=== PATIENT | female | born 1960 | race Caucasian/White ===

== ENCOUNTER 2020-11-19 15:25 | Inpatient (IN) | payer MEDICARE, MEDICAID ==
[~2020-11-19] VITALS: Ht 160 cm; Wt 123.8 kg
[2020-11-19 15:54] LABS: BASOPHILS % (AUTO) 0.6 % (0-1); EOSINOPHILS # (AUTO) 0.1 X10'3 (0-0.9); HEMATOCRIT 43.1 % (35.0-45.0); HEMOGLOBIN 13.7 g/dl (12.0-16.0); LYMPHOCYTES # (AUTO) 0.5 X10'3 (1.1-4.8); LYMPHOCYTES % (AUTO) 6.5 % (21-51); MEAN CORPUSCULAR HGB CONC 31.9 g/dL (33.0-36.5); MEAN CORPUSCULAR VOLUME 84.8 FL (78-98); MEAN PLATELET VOLUME 7.6 FL (7.4-10.4); MONOCYTES # (AUTO) 0.7 X10'3 (0-0.9); NEUTROPHILS % (AUTO) 83.9 % (42-75); PLATELET COUNT 262 X10'3 (140-440); RED BLOOD COUNT 5.08 X10'6 (4.20-5.60); RED CELL DISTRIBUTION WIDTH 16.2 % (11.5-14.5); WHITE BLOOD COUNT 8.4 X10'3 (4.5-11.0)
--- NOTE | 2020-11-19 15:55 | NUR ---
PT TO ROOM 8, TALKING 5-6 WORD SENTENCES, ON NASAL CANNULA 3 LITERS,
--- NOTE | 2020-11-19 16:01 | NUR ---
PER PT SINGER WAS PLACED ON WEDNESDAY IN [place]
[2020-11-19 16:11] LABS: ALANINE AMINOTRANSFERASE 12 U/L (12-78); ALBUMIN 3.6 G/DL (3.4-5.0); ALBUMIN/GLOBULIN RATIO 0.9 (1.1-1.5); ALKALINE PHOSPHATASE 100 IU/L (46-116); ANION GAP 6 (8-16); ASPARTATE AMINO TRANSFERASE 11 U/L (10-37); BILIRUBIN,TOTAL 0.6 MG/DL (0.1-1.0); BLOOD UREA NITROGEN 27 MG/DL (7-18); CALCIUM 8.7 MG/DL (8.5-10.1); CHLORIDE 105 MMOL/L (99-107); CREATININE 1.04 MG/DL (0.40-0.90); GLUCOSE 123 MG/DL (70-104); POTASSIUM 4.2 MMOL/L (3.5-5.1); SODIUM 143 MMOL/L (135-145); TOTAL PROTEIN 7.6 G/DL (6.4-8.2); eGFR 54 ML/MIN
[2020-11-19] MEDS ORDERED: furosemide 10 MG/1 ML 10ml inj IV ONE (16:25)
--- NOTE | 2020-11-19 17:23 | NUR ---
EMPTIED SINGER OF 450ML OF DARK YELLOW URINE, PT IS RESTING QUIETLY ON BOBY, AT BEDSIDE
[2020-11-19] MEDS ORDERED: albuterol 2.5 MG/3 ML nebule NEB ONE (18:10)
[2020-11-19] MEDS ORDERED: ipratropium/albuterol 3ml nebule NEB ONE (18:10)
[2020-11-19] MEDS ORDERED: methylPREDNISolone sod succ 125mg/2ml vial IV ONE (18:10)
[2020-11-19] MEDS ORDERED: dextrose ORAL solution 15 GM/59 ML bottle PO PRN ×2 (21:00)
[2020-11-19] MEDS ORDERED: potassium Cl 40MEQ/1/2NS 520ml 520 ML IV PRN ×2 (21:00)
[2020-11-19] MEDS ORDERED: acetaminophen 325mg tablet PO PRN ×2 (21:00)
[2020-11-19] MEDS ORDERED: magnesium hydroxide 30ml (MOM) UD suspension PO PRN (21:00)
[2020-11-19] MEDS ORDERED: magnesium Cl slow-release 64mg tablet PO PRN (21:00)
[2020-11-19] MEDS ORDERED: ondansetron/PF 4mg/2ml inj IV PRN (21:00)
[2020-11-19] MEDS ORDERED: glucagon, human recombinant 1mg kit SUBCUT PRN (21:00)
[2020-11-19] MEDS ORDERED: magnesium 4gm in 100ml NS 100 ML IV PRN (21:00)
[2020-11-19] MEDS ORDERED: magnesium 2GM in 50ml NS 50 ML IV PRN (21:00)
[2020-11-19] MEDS ORDERED: MESSAGE TO PHARMACY PO ONE (21:00)
[2020-11-19] MEDS ORDERED: potassium Cl 20 mEq SR tablet PO PRN ×2 (21:00)
[2020-11-19] MEDS ORDERED: mag hydrox/Alum hydrox/simeth 30ml oral suspension PO PRN (21:00)
[2020-11-19] MEDS ORDERED: morphine 2 MG/ML inj. syringe IV PRN (21:00)
[2020-11-19] MEDS ORDERED: temazepam 15mg capsule PO PRN (21:00)
[2020-11-19] MEDS ORDERED: albuterol 2.5 MG/3 ML nebule NEB PRN (21:00)
[2020-11-19] MEDS ORDERED: dextrose 50%-water 50ml dispensing syringe IV PRN ×2 (21:00)
[2020-11-19] MEDS: normal saline 1000ml 1,000 ML IV SCH (21:10)
[2020-11-19] MEDS ORDERED: OMEP40CA21 PO (21:15)
[2020-11-19] MEDS ORDERED: LISI-643 PO (21:15)
[2020-11-19] MEDS ORDERED: FURO40TA4 PO (21:15)
[2020-11-19] MEDS ORDERED: CETI-90 PO (21:15)
[2020-11-19] MEDS ORDERED: NICO-630 TOP (21:17)
[2020-11-19] MEDS ORDERED: ATOR10TA87 PO (21:17)
[2020-11-19] MEDS ORDERED: DILT240C33 PO (21:17)
[2020-11-19] MEDS ORDERED: METF-880 PO (21:17)
[2020-11-19] MEDS ORDERED: ALBU18HF2 INH (21:19)
[2020-11-19 21:52] LABS: HEMOGLOBIN A1C 6.6 % (4.5-6.2)
[2020-11-19] MEDS: insulin glargine (Lantus) pen - multi-dose SQ SCH (22:05)
--- NOTE | 2020-11-19 23:40 | NUR ---
Patient woke up in a panic stating she needed assitance getting up. Helped to a seated position on the side of the bed. She says her lips feel numb and her tongue feels like its burning. It has been feeling like that for past 2 days. Was provided with ice chips for comfort. No further needs at this time.
--- NOTE | 2020-11-20 02:26 | NUR ---
PT AWOKE AND CALLED OUT FOR NURSE AND FOR WATER. STATES SHE WAS ASLEEP AND SHE WOKE IN A PANIC AND COULDN'T BREATH AND HER MOUTH AND THROAT WAS SO DRY. GIVEN ICE CHIPS AND WATER AND POPCICLE. STATES THIS HAS BEEN HAPPENING LATELY TO HER. STATES ALSO SHE HAS THE SENSATION OF BURNING IN HER MOUTH AND TOUNGE THE PAST FEW DAYS.
[2020-11-20 03:39] LABS: BASOPHILS % (AUTO) 0.2 % (0-1); EOSINOPHILS % (AUTO) 0 % (0-6); HEMATOCRIT 43.7 % (35.0-45.0); HEMOGLOBIN 13.6 g/dl (12.0-16.0); LYMPHOCYTES # (AUTO) 0.1 X10'3 (1.1-4.8); LYMPHOCYTES % (AUTO) 1.9 % (21-51); MEAN CORPUSCULAR HEMOGLOBIN 26.6 PG (27.0-31.0); MEAN CORPUSCULAR HGB CONC 31.1 g/dL (33.0-36.5); MEAN CORPUSCULAR VOLUME 85.6 FL (78-98); MEAN PLATELET VOLUME 8.2 FL (7.4-10.4); MONOCYTES % (AUTO) 0.5 % (2-12); NEUTROPHILS # (AUTO) 7.4 X10'3 (1.8-7.7); NEUTROPHILS % (AUTO) 97.4 % (42-75); PLATELET COUNT 244 X10'3 (140-440); RED CELL DISTRIBUTION WIDTH 16.9 % (11.5-14.5); WHITE BLOOD COUNT 7.6 X10'3 (4.5-11.0)
[2020-11-20 04:47] LABS: ALANINE AMINOTRANSFERASE 17 U/L (12-78); ALBUMIN 3.6 G/DL (3.4-5.0); ALBUMIN/GLOBULIN RATIO 0.9 (1.1-1.5); ALKALINE PHOSPHATASE 90 IU/L (46-116); ANION GAP 8 (8-16); ASPARTATE AMINO TRANSFERASE 10 U/L (10-37); BILIRUBIN,TOTAL 0.5 MG/DL (0.1-1.0); BLOOD UREA NITROGEN 27 MG/DL (7-18); BUN/CREATININE RATIO 20.9 (6.6-38.0); CALCIUM 8.6 MG/DL (8.5-10.1); CHLORIDE 103 MMOL/L (99-107); CHOLESTEROL 104 MG/DL (0-200); CREATININE 1.29 MG/DL (0.40-0.90); GLUCOSE 278 MG/DL (70-104); HDL CHOLESTEROL 52 MG/DL (35-60); LDL CHOLESTEROL 47 MG/DL (50-100); MAGNESIUM 2.2 MG/DL (1.5-2.4); POTASSIUM 4.6 MMOL/L (3.5-5.1); SODIUM 142 MMOL/L (135-145); TOTAL CARBON DIOXIDE 31.1 MMOL/L (24-32); TOTAL PROTEIN 7.8 G/DL (6.4-8.2); TRIGLYCERIDES 41 MG/DL (20-135); eGFR 42 ML/MIN
[2020-11-20 05:01] LABS: TROPONIN I < 0.04 NG/ML (0.0-0.05)
[2020-11-20 06:00] VITALS: BP 141/78
[2020-11-20] MEDS: K and/or MAG REPLACEMENT MC SCH ×2 (08:00→20:00)
[2020-11-20] MEDS: atorvastatin 10mg tablet PO SCH (08:54)
[2020-11-20] MEDS: pantoprazole 40mg Tablet.DR PO SCH (08:54)
[2020-11-20] MEDS: diltiazem CD 120mg capsule (once-daily) PO SCH (08:54)
[2020-11-20] MEDS: furosemide 40mg/4ml inj IV SCH ×2 (08:56→20:45)
[2020-11-20] MEDS: heparin, porcine 5000 units/ml vial SQ SCH ×2 (08:56→20:00)
[2020-11-20] MEDS ORDERED: CETI10TA18 PO (10:12)
[2020-11-20] MEDS ORDERED: SPIR50TA5 PO (10:12)
[2020-11-20 11:00] VITALS: BP 154/88
[2020-11-20] MEDS: HYDROcodone/acetaminophen 5mg/325mg tablet PO PRN ×2 (11:50→20:45)
--- NOTE | 2020-11-20 13:15 | NUR ---
PAGER ID: [phone] MESSAGE: Re: Fanta Subramanian Rm 24B. She's requesting a nicotine patch. Smokes bout 3 cigars/wk.
[2020-11-20] MEDS: insulin Lispro (HumaLOG) vial - multi-dose SQ SCH (13:53)
[2020-11-20 15:00] VITALS: BP 134/53
--- NOTE | 2020-11-20 18:21 | NUR ---
Problems reprioritized. Patient report given, questions answered & plan of care reviewed with shift supervisor melting RN.
--- NOTE | 2020-11-20 19:25 | NUR ---
Patient in room PCU 3024. I have received report from Wilian GALVAN and had the opportunity to ask questions and assume patient care.
--- NOTE | 2020-11-20 19:43 | NUR ---
Problems reprioritized. Patient report given, questions answered & plan of care reviewed with Kristine GALVAN.
[2020-11-20] MEDS: insulin glargine (Lantus) pen - multi-dose SQ SCH (21:00)
--- NOTE | 2020-11-20 22:14 | NUR ---
[employer] PAGER ID: [phone] MESSAGE: [id number] just called, positive blood culture aerobic bottle drawn on 11/19 @2201 IV DRAW GRAM + RODS Kristine GALVAN
[2020-11-20] MEDS: nicotine 21mg patch - 24 hr TD SCH (23:34)
[2020-11-20] MEDS: CefTRIAXone/D5W-Rocephin 1gm 50 ML IV SCH (23:45)
[2020-11-21] MEDS: HYDROcodone/acetaminophen 5mg/325mg tablet PO PRN ×4 (01:28→19:31)
[2020-11-21 06:00] VITALS: BP 147/82
[2020-11-21 06:04] LABS: BASOPHILS % (AUTO) 0.1 % (0-1); EOSINOPHILS % (AUTO) 0.1 % (0-6); HEMATOCRIT 42.8 % (35.0-45.0); HEMOGLOBIN 13.6 g/dl (12.0-16.0); LYMPHOCYTES # (AUTO) 0.5 X10'3 (1.1-4.8); MEAN CORPUSCULAR HEMOGLOBIN 26.9 PG (27.0-31.0); MEAN CORPUSCULAR HGB CONC 31.9 g/dL (33.0-36.5); MEAN CORPUSCULAR VOLUME 84.4 FL (78-98); MEAN PLATELET VOLUME 7.9 FL (7.4-10.4); MONOCYTES # (AUTO) 0.8 X10'3 (0-0.9); MONOCYTES % (AUTO) 7.1 % (2-12); NEUTROPHILS # (AUTO) 9.4 X10'3 (1.8-7.7); NEUTROPHILS % (AUTO) 87.7 % (42-75); PLATELET COUNT 259 X10'3 (140-440); RED BLOOD COUNT 5.07 X10'6 (4.20-5.60); RED CELL DISTRIBUTION WIDTH 16.1 % (11.5-14.5); WHITE BLOOD COUNT 10.7 X10'3 (4.5-11.0)
[2020-11-21 06:13] LABS: ALANINE AMINOTRANSFERASE 19 U/L (12-78); ALBUMIN 3.6 G/DL (3.4-5.0); ALBUMIN/GLOBULIN RATIO 0.9 (1.1-1.5); ALKALINE PHOSPHATASE 84 IU/L (46-116); ANION GAP 6 (8-16); ASPARTATE AMINO TRANSFERASE 13 U/L (10-37); BILIRUBIN,TOTAL 0.4 MG/DL (0.1-1.0); BLOOD UREA NITROGEN 34 MG/DL (7-18); BUN/CREATININE RATIO 32.1 (6.6-38.0); CALCIUM 9.1 MG/DL (8.5-10.1); CHLORIDE 103 MMOL/L (99-107); CREATININE 1.06 MG/DL (0.40-0.90); GLUCOSE 130 MG/DL (70-104); MAGNESIUM 2.5 MG/DL (1.5-2.4); POTASSIUM 4.8 MMOL/L (3.5-5.1); SODIUM 140 MMOL/L (135-145); TOTAL CARBON DIOXIDE 31.2 MMOL/L (24-32); TOTAL PROTEIN 7.7 G/DL (6.4-8.2); eGFR 53 ML/MIN
--- NOTE | 2020-11-21 06:31 | NUR ---
Patient in room PCU 3024. I have received report from [place] and had the opportunity to ask questions and assume patient care.
--- NOTE | 2020-11-21 06:56 | NUR ---
Problems reprioritized. Patient report given, questions answered & plan of care reviewed with Wilian GALVAN.
[2020-11-21] MEDS: K and/or MAG REPLACEMENT MC SCH ×2 (08:00→20:00)
[2020-11-21] MEDS: insulin Lispro (HumaLOG) vial - multi-dose SQ SCH ×3 (08:56→21:03)
[2020-11-21] MEDS: furosemide 40mg/4ml inj IV SCH ×2 (08:58→19:14)
[2020-11-21] MEDS: pantoprazole 40mg Tablet.DR PO SCH (09:00)
[2020-11-21] MEDS: heparin, porcine 5000 units/ml vial SQ SCH (09:00)
[2020-11-21] MEDS: diltiazem CD 120mg capsule (once-daily) PO SCH (09:01)
[2020-11-21] MEDS: nicotine 21mg patch - 24 hr TD SCH (09:01)
[2020-11-21] MEDS: atorvastatin 10mg tablet PO SCH (09:02)
[2020-11-21 11:00] VITALS: BP 121/72
[2020-11-21] MEDS: chlorhexidine gluconate 15ml Cup****oral rinse MM SCH ×2 (13:32→19:17)
[2020-11-21 15:00] VITALS: BP 122/68
--- NOTE | 2020-11-21 17:22 | NUR ---
Pt requested cranberry juice. Encouraged and educated patient to monitor fluid intake. Pt verbalized understanding and will try to limit her intake to 8 cups/day.
[2020-11-21 18:00] VITALS: BP 133/81
--- NOTE | 2020-11-21 18:00 | NUR ---
Patient in room PCU 3024. I have received report from DIAMOND GALVAN and had the opportunity to ask questions and assume patient care.
--- NOTE | 2020-11-21 18:23 | NUR ---
Problems reprioritized. Patient report given, questions answered & plan of care reviewed with
[2020-11-21] MEDS: predniSONE 20 mg tablet PO SCH (19:10)
[2020-11-21] MEDS: lactobacillus rhamnosus 10,000 MMU CELLS/CAPSULE PO SCH (19:18)
--- NOTE | 2020-11-21 19:35 | NUR ---
PATIENT REFUSED INSULIN, HEPARIN, ROCEPHIN DESPITE EDUCATION. INITIALLY REFUSED PREDNISONE, THEN ACCEPTED ADMINISTRATION WITH EDUCATION. MD AWARE. BOBBY GALVAN
[2020-11-21] MEDS: insulin glargine (Lantus) pen - multi-dose SQ SCH (21:00)
[2020-11-21] MEDS: normal saline 1000ml 1,000 ML IV SCH (21:00)
[2020-11-21 22:00] VITALS: BP 132/71
[2020-11-21] MEDS: CefTRIAXone/D5W-Rocephin 1gm 50 ML IV SCH (23:00)
[2020-11-22 02:00] VITALS: BP 137/85
[2020-11-22] MEDS: HYDROcodone/acetaminophen 5mg/325mg tablet PO PRN ×3 (03:18→19:58)
[2020-11-22 06:00] VITALS: BP 138/90
--- NOTE | 2020-11-22 06:03 | NUR ---
Problems reprioritized. Patient report given, questions answered & plan of care reviewed with DELMY GALVAN.
[2020-11-22] MEDS: pantoprazole 40mg Tablet.DR PO SCH (07:49)
[2020-11-22] MEDS: lactobacillus rhamnosus 10,000 MMU CELLS/CAPSULE PO SCH ×2 (07:49→19:58)
[2020-11-22] MEDS: predniSONE 20 mg tablet PO SCH (07:50)
[2020-11-22] MEDS: atorvastatin 10mg tablet PO SCH (07:50)
[2020-11-22] MEDS: diltiazem CD 120mg capsule (once-daily) PO SCH (07:51)
[2020-11-22 07:54] LABS: BASOPHILS % (AUTO) 0.1 % (0-1); EOSINOPHILS % (AUTO) 0 % (0-6); HEMATOCRIT 44.6 % (35.0-45.0); HEMOGLOBIN 13.9 g/dl (12.0-16.0); LYMPHOCYTES # (AUTO) 0.3 X10'3 (1.1-4.8); LYMPHOCYTES % (AUTO) 3.9 % (21-51); MEAN CORPUSCULAR HEMOGLOBIN 26.5 PG (27.0-31.0); MEAN CORPUSCULAR HGB CONC 31.1 g/dL (33.0-36.5); MEAN CORPUSCULAR VOLUME 85.2 FL (78-98); MEAN PLATELET VOLUME 7.9 FL (7.4-10.4); MONOCYTES # (AUTO) 0.1 X10'3 (0-0.9); MONOCYTES % (AUTO) 1.9 % (2-12); NEUTROPHILS # (AUTO) 7.1 X10'3 (1.8-7.7); NEUTROPHILS % (AUTO) 94.1 % (42-75); PLATELET COUNT 265 X10'3 (140-440); RED BLOOD COUNT 5.24 X10'6 (4.20-5.60); RED CELL DISTRIBUTION WIDTH 16.2 % (11.5-14.5); WHITE BLOOD COUNT 7.6 X10'3 (4.5-11.0)
[2020-11-22] MEDS: chlorhexidine gluconate 15ml Cup****oral rinse MM SCH ×2 (07:54→19:55)
[2020-11-22] MEDS: furosemide 40mg/4ml inj IV SCH ×2 (07:54→19:56)
[2020-11-22] MEDS: CefTRIAXone/D5W-Rocephin 1gm 50 ML IV SCH (08:00)
[2020-11-22] MEDS: K and/or MAG REPLACEMENT MC SCH ×2 (08:00→20:07)
[2020-11-22] MEDS: nicotine 21mg patch - 24 hr TD SCH ×2 (08:00→14:39)
[2020-11-22] MEDS: heparin, porcine 5000 units/ml vial SQ SCH ×3 (08:00→20:00)
--- NOTE | 2020-11-22 08:01 | NUR ---
Patient refused the following meds: rocephin, heparin, nicotine patch - education provided re: importance of medications, pt verbalized understanding.
[2020-11-22 08:21] LABS: ALANINE AMINOTRANSFERASE 20 U/L (12-78); ALBUMIN 3.5 G/DL (3.4-5.0); ALBUMIN/GLOBULIN RATIO 0.9 (1.1-1.5); ALKALINE PHOSPHATASE 91 IU/L (46-116); ANION GAP 7 (8-16); ASPARTATE AMINO TRANSFERASE 13 U/L (10-37); BILIRUBIN,TOTAL 0.5 MG/DL (0.1-1.0); BLOOD UREA NITROGEN 41 MG/DL (7-18); BUN/CREATININE RATIO 35.3 (6.6-38.0); CHLORIDE 101 MMOL/L (99-107); CREATININE 1.16 MG/DL (0.40-0.90); GLUCOSE 155 MG/DL (70-104); MAGNESIUM 2.2 MG/DL (1.5-2.4); SODIUM 141 MMOL/L (135-145); TOTAL PROTEIN 7.4 G/DL (6.4-8.2); eGFR 48 ML/MIN
[2020-11-22 11:00] VITALS: BP 115/66
--- NOTE | 2020-11-22 12:17 | NUR ---
Pt refused: humalog insulin after breakfast per protocol & 1100 blood sugar check
[2020-11-22 15:00] VITALS: BP 129/77
[2020-11-22 18:00] VITALS: BP 129/81
--- NOTE | 2020-11-22 18:30 | NUR ---
Patient in room U 3024. I have received report from DELMY GALVAN and had the opportunity to ask questions and assume patient care. Addendum: 11/22/20 at 1917 by Krysta Jay RN Amended: Links added.
--- NOTE | 2020-11-22 18:44 | NUR ---
Problems reprioritized. Patient report given, questions answered & plan of care reviewed with COLE Chaparro.
[2020-11-22] MEDS: insulin Lispro (HumaLOG) vial - multi-dose SQ SCH (20:17)
--- NOTE | 2020-11-22 20:30 | NUR ---
SINGER CATHETER Patient refused the removal of the Singer catheter, stating "I have it in for my Lasix". Patient also refused the recommendation of walking to the bathroom or having a bedside commode, also stating stating "I cant go too far without my oxygen and I go too much." MD Soto has addressed in the H&P that the Singer was placed for the Lasix and will be continuing on Lasix. Will pass information to night RN to follow up with to get order for Singer.
[2020-11-22] MEDS: insulin glargine (Lantus) pen - multi-dose SQ SCH (21:00)
--- NOTE | 2020-11-22 22:00 | NUR ---
pt refused lantus dose. blood sugar 122. had taken humalog earlier. also refused heparin dose earlier. Stated she walked enough. noted she had not walked much or very far in the room. no more than 2 feet.
[2020-11-22 23:00] VITALS: BP 138/66
--- NOTE | 2020-11-23 00:56 | NUR ---
PT STATED SHE WAS HUNGRY WANTED A YOGURT. had dietary teaching done with her.
[2020-11-23] MEDS: HYDROcodone/acetaminophen 5mg/325mg tablet PO PRN ×4 (01:27→19:49)
--- NOTE | 2020-11-23 01:29 | NUR ---
complaint of pain back legs and mouth. medicated with po norco.
--- NOTE | 2020-11-23 05:54 | NUR ---
Dr Soto called to see if see wanted the marcum to remain. received orders to discontinue it.
--- NOTE | 2020-11-23 05:55 | NUR ---
pt not happy but jossue grijalva'd after deflating the balloon and to semi appease her wicc applied and teaching regarding it done.
[2020-11-23 06:00] VITALS: BP 105/76
--- NOTE | 2020-11-23 06:24 | NUR ---
Problems reprioritized. Patient report given, questions answered & plan of care reviewed with Cam Trinidad. Addendum: 11/23/20 at 0627 by Krysta Jay RN Amended: Links added.
[2020-11-23 06:53] LABS: BASOPHILS % (AUTO) 0.3 % (0-1); EOSINOPHILS % (AUTO) 0.3 % (0-6); HEMATOCRIT 45.7 % (35.0-45.0); HEMOGLOBIN 14.4 g/dl (12.0-16.0); LYMPHOCYTES # (AUTO) 0.9 X10'3 (1.1-4.8); LYMPHOCYTES % (AUTO) 10.1 % (21-51); MEAN CORPUSCULAR HEMOGLOBIN 26.8 PG (27.0-31.0); MEAN CORPUSCULAR HGB CONC 31.6 g/dL (33.0-36.5); MEAN CORPUSCULAR VOLUME 84.8 FL (78-98); MONOCYTES # (AUTO) 0.8 X10'3 (0-0.9); MONOCYTES % (AUTO) 8.5 % (2-12); NEUTROPHILS # (AUTO) 7.2 X10'3 (1.8-7.7); NEUTROPHILS % (AUTO) 80.8 % (42-75); PLATELET COUNT 289 X10'3 (140-440); RED BLOOD COUNT 5.39 X10'6 (4.20-5.60)
[2020-11-23 07:16] LABS: ALANINE AMINOTRANSFERASE 24 U/L (12-78); ALBUMIN 3.6 G/DL (3.4-5.0); ALBUMIN/GLOBULIN RATIO 0.9 (1.1-1.5); ALKALINE PHOSPHATASE 94 IU/L (46-116); ANION GAP 6 (8-16); ASPARTATE AMINO TRANSFERASE 14 U/L (10-37); BILIRUBIN,TOTAL 0.6 MG/DL (0.1-1.0); BLOOD UREA NITROGEN 41 MG/DL (7-18); BUN/CREATININE RATIO 34.5 (6.6-38.0); CALCIUM 9.3 MG/DL (8.5-10.1); CHLORIDE 100 MMOL/L (99-107); CREATININE 1.19 MG/DL (0.40-0.90); GLUCOSE 90 MG/DL (70-104); MAGNESIUM 2.2 MG/DL (1.5-2.4); POTASSIUM 4.1 MMOL/L (3.5-5.1); SODIUM 144 MMOL/L (135-145); TOTAL CARBON DIOXIDE 37.8 MMOL/L (24-32); TOTAL PROTEIN 7.4 G/DL (6.4-8.2); eGFR 46 ML/MIN
[2020-11-23] MEDS: heparin, porcine 5000 units/ml vial SQ SCH ×2 (08:00→20:00)
[2020-11-23] MEDS: chlorhexidine gluconate 15ml Cup****oral rinse MM SCH ×2 (08:01→20:10)
[2020-11-23] MEDS: furosemide 40mg/4ml inj IV SCH ×2 (08:08→19:52)
[2020-11-23] MEDS: pantoprazole 40mg Tablet.DR PO SCH (08:08)
[2020-11-23] MEDS: atorvastatin 10mg tablet PO SCH (08:08)
[2020-11-23] MEDS: diltiazem CD 120mg capsule (once-daily) PO SCH (08:10)
[2020-11-23] MEDS: predniSONE 20 mg tablet PO SCH (08:10)
[2020-11-23] MEDS: lactobacillus rhamnosus 10,000 MMU CELLS/CAPSULE PO SCH ×2 (08:10→19:56)
--- NOTE | 2020-11-23 08:24 | NUR ---
Pt refused heparin, edu given. she demonstrated clear understanding of med purpose and still refuses. pt also refused bg check this AM , she had taken it on her home meter already - "110", edu given, pt agreed to use her lancet and our meter from here on out. refusing am vianca
[2020-11-23] MEDS ORDERED: albuterol 2.5 MG/3 ML nebule NEB PRN (09:40)
[2020-11-23] MEDS ORDERED: ipratropium/albuterol 3ml nebule NEB PRN (09:40)
--- NOTE | 2020-11-23 10:43 | NUR ---
Rounded with MD Adair and reviewed pt problems, orders received. pt has strong c/o abd distention and not being able to clean herself after toileting d/t new distension, also mouth soreness persists.
[2020-11-23 11:00] VITALS: BP 148/70
--- NOTE | 2020-11-23 12:00 | NUR ---
pt refusing BG cjhecks again and using her own equipment. her noon bg is 127 .
[2020-11-23] MEDS: nicotine 21mg patch - 24 hr TD SCH (15:45)
--- NOTE | 2020-11-23 15:47 | NUR ---
removed old nicotine patch
[2020-11-23] MEDS ORDERED: mag & alum hydrox/simeth susp 40 ML, diphenhydrAMINE oral solution 100 MG, LIDOcaine Vi... PO PRN ×3 (16:50)
--- NOTE | 2020-11-23 17:00 | NUR ---
Pt BG is 164 per her meter. she refused coverage but is open to "checking it again later and letting us know " if she wants it covered
[2020-11-23 18:00] VITALS: BP 141/78
--- NOTE | 2020-11-23 18:00 | NUR ---
Patient in room U 3024. I have received report from Cam GALVAN and had the opportunity to ask questions and assume patient care. Addendum: 11/23/20 at 1914 by Marisela Velarde RN Amended: Links added.
--- NOTE | 2020-11-23 18:31 | NUR ---
Problems reprioritized. Patient report given, questions answered & plan of care reviewed with Marisela GALVAN.
[2020-11-23] MEDS: K and/or MAG REPLACEMENT MC SCH (20:00)
[2020-11-23] MEDS: normal saline 1000ml 1,000 ML IV SCH (21:00)
[2020-11-23] MEDS: insulin glargine (Lantus) pen - multi-dose SQ SCH (21:00)
--- NOTE | 2020-11-23 21:00 | NUR ---
Pt. awake sitting on the edge of the bed watching TV with c/o SOB but wearing o2 and sating adequately. Pt. is cooperative at this time but refusing most of the care needed. Pt. refused most of the evening medication. Pt. insists on taking own and managing own blood sugars. Educated pt. on the importance of taking prescribed medication but the pt. declined. Call light within reach. Addendum: 11/24/20 at 1040 by Marisela Velarde RN Amended: Links added.
[2020-11-23 22:00] VITALS: BP 136/63
[2020-11-24] MEDS: HYDROcodone/acetaminophen 5mg/325mg tablet PO PRN ×3 (01:00→19:48)
[2020-11-24 03:15] VITALS: BP 135/87
--- NOTE | 2020-11-24 06:00 | NUR ---
Problems reprioritized. Patient report given, questions answered & plan of care reviewed with Aliya GALVAN. Addendum: 11/24/20 at 0712 by Marisela Velarde RN Amended: Links added.
--- NOTE | 2020-11-24 06:19 | NUR ---
Patient in room PCU 3024. I have received report from Marisela GALVAN and had the opportunity to ask questions and assume patient care.
[2020-11-24 06:52] LABS: ALANINE AMINOTRANSFERASE 32 U/L (12-78); ALBUMIN 3.5 G/DL (3.4-5.0); ALBUMIN/GLOBULIN RATIO 0.9 (1.1-1.5); ALKALINE PHOSPHATASE 82 IU/L (46-116); ANION GAP 5 (8-16); ASPARTATE AMINO TRANSFERASE 19 U/L (10-37); BILIRUBIN,TOTAL 0.6 MG/DL (0.1-1.0); BLOOD UREA NITROGEN 39 MG/DL (7-18); BUN/CREATININE RATIO 39.8 (6.6-38.0); CALCIUM 8.8 MG/DL (8.5-10.1); CHLORIDE 99 MMOL/L (99-107); CREATININE 0.98 MG/DL (0.40-0.90); GLUCOSE 102 MG/DL (70-104); MAGNESIUM 2.5 MG/DL (1.5-2.4); POTASSIUM 3.9 MMOL/L (3.5-5.1); SODIUM 144 MMOL/L (135-145); TOTAL CARBON DIOXIDE 39.8 MMOL/L (24-32); TOTAL PROTEIN 7.3 G/DL (6.4-8.2); eGFR 58 ML/MIN
[2020-11-24 06:53] LABS: BASOPHILS % (AUTO) 0.4 % (0-1); EOSINOPHILS % (AUTO) 0.4 % (0-6); HEMATOCRIT 44.1 % (35.0-45.0); HEMOGLOBIN 14.1 g/dl (12.0-16.0); LYMPHOCYTES # (AUTO) 0.7 X10'3 (1.1-4.8); LYMPHOCYTES % (AUTO) 8.2 % (21-51); MEAN CORPUSCULAR HEMOGLOBIN 26.9 PG (27.0-31.0); MEAN CORPUSCULAR HGB CONC 31.9 g/dL (33.0-36.5); MEAN CORPUSCULAR VOLUME 84.3 FL (78-98); MEAN PLATELET VOLUME 7.9 FL (7.4-10.4); MONOCYTES # (AUTO) 0.7 X10'3 (0-0.9); MONOCYTES % (AUTO) 8.3 % (2-12); NEUTROPHILS # (AUTO) 7.3 X10'3 (1.8-7.7); NEUTROPHILS % (AUTO) 82.7 % (42-75); PLATELET COUNT 275 X10'3 (140-440); RED BLOOD COUNT 5.23 X10'6 (4.20-5.60); RED CELL DISTRIBUTION WIDTH 16.1 % (11.5-14.5); WHITE BLOOD COUNT 8.9 X10'3 (4.5-11.0)
[2020-11-24 07:00] VITALS: BP 129/86
[2020-11-24] MEDS: K and/or MAG REPLACEMENT MC SCH ×2 (08:00→20:00)
[2020-11-24] MEDS: heparin, porcine 5000 units/ml vial SQ SCH (08:00)
[2020-11-24] MEDS: chlorhexidine gluconate 15ml Cup****oral rinse MM SCH ×2 (09:22→21:58)
[2020-11-24] MEDS: nicotine 21mg patch - 24 hr TD SCH (09:22)
[2020-11-24] MEDS: furosemide 40mg/4ml inj IV SCH ×2 (09:23→21:58)
[2020-11-24] MEDS: diltiazem CD 120mg capsule (once-daily) PO SCH (09:24)
[2020-11-24] MEDS: atorvastatin 10mg tablet PO SCH (09:24)
[2020-11-24] MEDS: pantoprazole 40mg Tablet.DR PO SCH (09:24)
[2020-11-24] MEDS: lactobacillus rhamnosus 10,000 MMU CELLS/CAPSULE PO SCH ×2 (09:24→21:58)
[2020-11-24] MEDS: predniSONE 20 mg tablet PO SCH (09:25)
[2020-11-24] MEDS ORDERED: PRED20TA PO (10:22)
[2020-11-24] MEDS ORDERED: DOXY-243 PO (10:22)
[2020-11-24] MEDS ORDERED: APIX5TAB3 PO (10:22)
--- NOTE | 2020-11-24 10:53 | NUR ---
Pt refused Accucheck and insulin this AM
[2020-11-24 11:00] VITALS: BP 145/101
--- NOTE | 2020-11-24 11:00 | NUR ---
PT DISPUTES HER DISCHARGE TODAY, STATES THE SWELLING IN HER ABDOMEN IS TOO MUCH TO BE SAFELY AT HOME. PT CONTACTED MEDICARE FOR 24 HR APPEAL VIA 800 NUMBER. RN VANESSA CASTILLO, CASE MANAGEMENT AND HIDE CURER, NO ANSWER BACK YET, WILL CONTINUE TO MONITOR
--- NOTE | 2020-11-24 11:53 | NUR ---
Initial: Pt admitted w/ increasing SOB per EMR, pt also complaining of abd distention. Pt able to eat well, mostly 100% of CCHO/Heart healthy diet meeting needs. No N/V/D noted, LBM 11/22. Pt noted to be refusing most care. No nutritional intervention at this time, will continue to monitor. Recs: 1. Continue CCHO/Heart healthy diet as tolerated 2. Bowel care per rx 3. Weekly wts Addendum: 11/24/20 at [address] Amended: Links added.
--- NOTE | 2020-11-24 15:51 | NUR ---
Pt states she will leave at midnight tonight and is requesting a huston breakdown of the out of pocket cost of her visit. Message relayed to case management, pt informed that billing information is handled through our billing department. As of now, patient stating she will be picked up at midnight tonight. Will continue to monitor.
--- NOTE | 2020-11-24 16:06 | NUR ---
pt refused vital signs
--- NOTE | 2020-11-24 18:16 | NUR ---
Problems reprioritized. Patient report given, questions answered & plan of care reviewed with Fouzia GALVAN.
[2020-11-24 19:00] VITALS: BP 140/82
[2020-11-24] MEDS: insulin Lispro (HumaLOG) vial - multi-dose SQ SCH (19:41)
[2020-11-24] MEDS: DOXYCYCLINE 100MG CAPSULE PO SCH (19:43)
[2020-11-24] MEDS: insulin glargine (Lantus) pen - multi-dose SQ SCH (21:00)
[2020-11-24] MEDS: apixaban 5mg tablet PO SCH (21:58)
[2020-11-24 23:00] VITALS: BP 147/82
[2020-11-25 03:00] VITALS: BP 135/83
--- NOTE | 2020-11-25 06:59 | NUR ---
Patient in room PCU 3024. I have received report from Tracy Trinidad and had the opportunity to ask questions and assume patient care.
[2020-11-25 07:00] VITALS: BP 135/75
[2020-11-25] MEDS: K and/or MAG REPLACEMENT MC SCH (08:00)
[2020-11-25] MEDS: atorvastatin 10mg tablet PO SCH (09:13)
[2020-11-25] MEDS: chlorhexidine gluconate 15ml Cup****oral rinse MM SCH (09:13)
[2020-11-25] MEDS: apixaban 5mg tablet PO SCH (09:13)
[2020-11-25] MEDS: pantoprazole 40mg Tablet.DR PO SCH (09:13)
[2020-11-25] MEDS: DOXYCYCLINE 100MG CAPSULE PO SCH (09:13)
[2020-11-25] MEDS: lactobacillus rhamnosus 10,000 MMU CELLS/CAPSULE PO SCH (09:13)
[2020-11-25] MEDS: diltiazem CD 120mg capsule (once-daily) PO SCH (09:14)
[2020-11-25] MEDS: furosemide 40mg/4ml inj IV SCH (09:14)
[2020-11-25] MEDS: HYDROcodone/acetaminophen 5mg/325mg tablet PO PRN (09:14)
[2020-11-25] MEDS: predniSONE 20 mg tablet PO SCH (09:14)
--- NOTE | 2020-11-25 09:27 | NUR ---
Pt refused her humalog insulin correctional dose.
[2020-11-25 11:00] VITALS: BP 151/83
--- NOTE | 2020-11-25 12:05 | NUR ---
Pt stabel for D/c Per MD orders. discharge instructions explained to patient and all questions answered. PIV discontinued telemonitoring discontinued. Tech notified. Medications retrieved from pharmacy and sent with patient. All belongings sent home with patient. Medications sent electronically to pt's pharmacy. Pt wheeled to lobby on 2lpm [place] of home o2 supply. Transported home by daughter.
== END 2020-11-25 12:00 | disposition home or self-care (01) | DRG 191 ==
LOC: ER 15:27 → ED HOLD 21:04 → PCU 3S 11-20 07:35
PROVIDERS: ADMIT Internal Medicine; ATTEND Internal Medicine
DX: J44.1 Chronic obstructive pulmonary disease with (acute) exacerbation (principal); I13.0 Hypertensive heart and chronic kidney disease with heart failure and stage 1 through stage 4 chronic kidney disease, or unspecified chronic kidney disease; Z68.42 Body mass index [BMI] 45.0-49.9, adult; I50.22 Chronic systolic (congestive) heart failure; J44.0 Chronic obstructive pulmonary disease with (acute) lower respiratory infection; J20.9 Acute bronchitis, unspecified; I50.813 Acute on chronic right heart failure; I25.10 Atherosclerotic heart disease of native coronary artery without angina pectoris; E66.01 Morbid (severe) obesity due to excess calories; F17.290 Nicotine dependence, other tobacco product, uncomplicated; E11.22 Type 2 diabetes mellitus with diabetic chronic kidney disease; N18.30 Chronic kidney disease, stage 3 unspecified; K57.90 Diverticulosis of intestine, part unspecified, without perforation or abscess without bleeding; E78.00 Pure hypercholesterolemia, unspecified; G47.30 Sleep apnea, unspecified; Z20.822 Contact with and (suspected) exposure to COVID-19; R14.0 Abdominal distension (gaseous); E78.5 Hyperlipidemia, unspecified; F60.9 Personality disorder, unspecified; I48.91 Unspecified atrial fibrillation; Z79.01 Long term (current) use of anticoagulants; Z79.84 Long term (current) use of oral hypoglycemic drugs; Z99.81 Dependence on supplemental oxygen; Z88.0 Allergy status to penicillin; Z71.6 Tobacco abuse counseling
CPT/HCPCS: 36415; 71045; 74176; 80053; 80061; 82948; 83036; 83605; 83735; 83880; 84484; 85025; 87040; 87081; 87635; 93005; 93306; 94640; 94760; 96374; 96375; 97116; 97161; 97530; 99285; C9803; G0378; J1644; J1815; J1940; J2930; J7030; J7512